=== PATIENT | male | born 1985 | race Caucasian/White ===

== ENCOUNTER 2016-12-23 17:51 | Inpatient (IN) | payer BC ==
[~2016-12-23] VITALS: Ht 165.1 cm; Wt 83.0 kg
[2016-12-23 17:53] VITALS: BP 135/84; PULSE 111; RESP 16; TEMP 98.3; O2SAT 96
--- NOTE | 2016-12-23 18:44 | PD ---
HPI Chief Complaint: Injury Time Seen by Provider: 18:44 Travel History International Travel<30 days: No Contact w/Intl Traveler<30days: No Traveled to known affect area: No History of Present Illness HPI 31-year-old male with no significant medical history presents to the emergency department for evaluation of right ankle pain. Patient states he fell off of a 4 foot ladder and rolled his ankle. Experienced immediate pain. Is unable to ambulate on it without significant pain. Pain is an 8 out of 10. Denies any low back pain. Did not hit his head or lose consciousness. Has no other symptoms to report. [facility] Past Medical History Medical History: Denies Significant Hx Past Surgical History Surgical History: No Previous Surgery Social History Alcohol Use: Yes (occ) Tobacco Use: No Substance Use: No Allergies-Medications (Allergen,Severity, Reaction): Coded Allergies: No Known Allergies (Unverified , 12/23/16) Review of Systems Except as stated in HPI: all other systems reviewed are Neg Physical Exam Narrative GENERAL: Well-nourished, well-developed male patient in no acute distress SKIN: Warm and dry. HEAD: Normocephalic. EYES: No scleral icterus. No injection or drainage. NECK: Supple, trachea midline. No JVD or lymphadenopathy. CARDIOVASCULAR: Regular rate and rhythm without murmurs, gallops, or rubs. RESPIRATORY: Breath sounds equal bilaterally. No accessory muscle use. GASTROINTESTINAL: Abdomen soft, non-tender, nondistended. EXTREMITY: The right proximal lateral foot and ankle is swollen and tender over the lateral aspect but the skin is intact and there is no ligamentous instability. There is no deformity. The foot and toes are warm and well- perfused. Sensation to pain and light touch is intact. BACK: Nontender without obvious deformity. No CVA tenderness. Data Data Last Documented VS Vital Signs Date Time Temp Pulse Resp B/P Pulse Ox O2 Delivery O2 Flow Rate FiO2 12/23/16 17:53 98.3 111 16 135/84 96 Room Air Orders Ankle, Complete ([id number]) (12/23/16 ) Ct Foot W/O Contrast (12/23/16 ) Ibuprofen (Motrin) (12/23/16 19:15) Npo After Midnight W/ Po Meds (12/24/16 Breakfast) Morphine Inj (Morphine Inj) (12/23/16 21:30) Ondansetron Inj (Zofran Inj) (12/23/16 21:30) Sodium Chlor 0.9% 1000 Ml Inj (Ns 1000 M (12/23/16 21:30) Iv Access Insert/Monitor (12/23/16 21:23) Complete Blood Count With Diff (12/23/16 21:23) Basic Metabolic Panel (Bmp) (12/23/16 21:23) Coag Profile (12/23/16 21:23) MDM Medical Decision Making Medical Screen Exam Complete: Yes Emergency Medical Condition: Yes Medical Record Reviewed: Yes Differential Diagnosis Fracture versus sprain versus contusion versus dislocation Narrative Course 31-year-old male presents per department for evaluation of right ankle pain. Patient is requesting ibuprofen for pain. X-ray imaging shows a comminuted intra-articular fracture of the calcaneus. CT imaging is ordered. Last Impressions Ankle X-Ray 12/23/16 0000 Signed Impressions: Service Date/Time: Friday, December 23, 2016 19:01 - CONCLUSION: Comminuted intra-articular fracture of the calcaneus. Danny Callahan MD I discussed the patient with Dr. Metz, shield runner on-call. She requested admission to medicine, nothing by mouth after midnight, posterior short leg splint with extra padding, ice, and elevation on a wedge. She plans for surgical intervention in the morning. Plan is discussed with the patient. He is in agreement with this plan of care. Diagnosis Primary Impression: Right calcaneal fracture Qualified Code: S92.011A - Closed displaced fracture of body of right calcaneus, initial encounter Admitting Information Admitting Physician Requests: Admit Condition: Stable Jeri Cervantes Dec 23, 2016 18:44
[2016-12-23] MEDS ORDERED: IBUPROFEN 600 MG TAB PO ONE (19:15)
--- NOTE | 2016-12-23 19:33 | RADRPT ---
EXAM DATE/TIME: 12/23/2016 19:01 [facility] COMPARISON: No previous studies available for comparison. INDICATIONS : Right ankle and heel pain fell from ladder. MEDICAL HISTORY : None. SURGICAL HISTORY : None. ENCOUNTER: Initial ACUITY: 1 day PAIN SCORE: 8/10 LOCATION: Right Ankle. FINDINGS: There is an extremely comminuted acute fracture of the mid and posterior body of the calcaneus. Fract ure has intra-articular extension of the subtalar joint, mainly in the region of the posterior facet. The cortex just distal to the plantar fascial attachment is also involved. There is straightening of Boehler's angle. CONCLUSION: Comminuted intra-articular fracture of the calcaneus. Danny Callahan MD on December 23, 2016 at 19:31 Board Certified Radiologist. This report was verified electronically.
[2016-12-23] MEDS ORDERED: MORPHINE SULFATE 4 MG/ML INJ IV PUSH ONE (21:30)
[2016-12-23] MEDS ORDERED: SODIUM CHLOR 0.9% 1000 ML INJ 1,000 ML IV SCH (21:30)
[2016-12-23] MEDS ORDERED: ONDANSETRON HCL 4 MG/2 ML VIAL IV PUSH ONE (21:30)
[2016-12-23 22:08] LABS: BASOPHIL % 0.4 % (0.0-2.0); EOSINOPHIL % 0.3 % (0.0-4.0); HEMATOCRIT 40.9 % (39.0-51.0); HEMO FLAGS DIFF FINAL; LYMPH % 18.1 % (9.0-44.0); MEAN CELL VOLUME 85.3 FL (80.0-100.0); MEAN CORPUSCULAR HEMOGLOBIN 29.6 PG (27.0-34.0); MEAN CORPUSCULAR HGB CONC 34.7 % (32.0-36.0); MONO % 8.3 % (0.0-8.0); NEUT % 72.9 % (16.0-70.0); PLATELET COUNT 250 TH/MM3 (150-450); RED BLOOD COUNT 4.79 MIL/MM3 (4.50-5.90); RED CELL DISTRIBUTION WIDTH 13.1 % (11.6-17.2)
--- NOTE | 2016-12-23 22:19 | HHI.HP ---
[facility] Primary Care Physician No Primary Care Physician Admission Diagnosis Diagnoses: (1) Fall Diagnosis: Principal (2) Right calcaneal fracture Diagnosis: Principal (3) Dehydration Diagnosis: Principal Travel History International Travel<30 Days: No Contact w/Intl Traveler <30 Da: No Traveled to Known Affected Are: No History of Present Illness This is a 31-year-old male with no significant PMH she was brought to the ER by EMS secondary to complaints of right ankle pain after a fall. Per pt fell off ladder approx 4ft onto right ankle, c/o immediate pain and unable to bare weight. No head trauma or LOC. On arrival, BP 135/84, HR 111, O2 sat 96% on RA , Afebrile. CBC unremarkable except for mildly elevated neutrophil count. Chemistry unremarkable except for GFR 79. Ankle X-ray with comminuted intra- articular fracture of the calcaneus. RLE CT obtained showing same. Dr. Metz consulted by ER physician, plan is for surgical intervention in am. Review of Systems Except as stated in HPI: all other systems reviewed are Neg ROS: 14 point review of systems otherwise negative. Past Family Social History Past Medical History PMH: None Past Surgical History PAST SURGICAL HISTORY: None Allergies: Coded Allergies: No Known Allergies (Unverified , 12/23/16) Family History PAST FAMILY HISTORY: Reviewed. No h/o DM or CAD Social History PAST SOCIAL HISTORY: Occasional alcohol. Negative for tobacco or drugs. Physical Exam Vital Signs Vital Signs Date Time Temp Pulse Resp B/P Pulse Ox O2 Delivery O2 Flow Rate FiO2 12/23/16 17:53 98.3 111 16 135/84 96 Room Air Physical Exam PE: GENERAL: Young white male in no acute distress. HEENT: PERRLA, EOMI. No scleral icterus or conjunctival pallor. No lid lag or facial droop. CARDIOVASCULAR: Regular rate and rhythm. No obvious murmurs to auscultation. No chest tenderness to palpation. RESPIRATORY: No obvious rhonchi or wheezing. Clear to auscultation. Breath sounds equal bilaterally. GASTROINTESTINAL: Abdomen soft, non-tender, nondistended. BS normal. MUSCULOSKELETAL: Decreased ROM of RLE due to injury. Pulses intact. NEUROLOGICAL: Awake, alert and oriented x4. No focal neurologic deficits. Moving both upper and lower extremities spontaneously. Laboratory Laboratory Tests Test 12/23/16 22:00 White Blood Count 11.0 Red Blood Count 4.79 Hemoglobin 14.2 Hematocrit 40.9 Mean Corpuscular Volume 85.3 Mean Corpuscular Hemoglobin 29.6 Mean Corpuscular Hemoglobin 34.7 Concent Red Cell Distribution Width 13.1 Platelet Count 250 Mean Platelet Volume 9.0 Neutrophils (%) (Auto) 72.9 Lymphocytes (%) (Auto) 18.1 Monocytes (%) (Auto) 8.3 Eosinophils (%) (Auto) 0.3 Basophils (%) (Auto) 0.4 Neutrophils # (Auto) 8.0 Lymphocytes # (Auto) 2.0 Monocytes # (Auto) 0.9 Eosinophils # (Auto) 0.0 Basophils # (Auto) 0.0 CBC Comment DIFF FINAL Differential Comment Result Diagram: 12/23/16 2200 Assessment and Plan Problem List: (1) Fall ICD Code: W19.XXXA Status: Acute (2) Right calcaneal fracture ICD Code: S92.001A Status: Acute (3) Dehydration ICD Code: E86.0 Status: Acute Assessment and Plan A/P: 1. Fall: s/p fall from 4ft ladder onto right foot/ankle, no head trauma or LOC reported. Denies lightheadedness/dizziness prior to event. 2. Right Heel Fx: secondary to above, Ankle X-ray w/ comminuted intra- articular fracture of the calcaneus, CT RLE obtained showing same, images reviewed by me. Dr. Metz consulted by ER physician, plan is for surgical intervention in am. NPO, IVF, analgesics/antiemetics as needed. 3. Dehydration: GFR 79, BUN/Creatinine normal. IVF for hydration, repeat labs in am. 4. DVT Prophylaxis: Mechanical contraindication in light of injury. Anticoagulation post op per Ortho 5. Social work for d/c planning as needed. 6. Case discussed w/ ER physician at length. Physician Certification 2 Midnight Certification Type: Admission for Inpatient Services Order for Inpatient Services The services are ordered in accordance with Medicare regulations or non- Medicare payer requirements, as applicable. In the case of services not specified as inpatient-only, they are appropriately provided as inpatient services in accordance with the 2-midnight benchmark. Estimated LOS (days): 2 days is the estimated time the patient will need to remain in the hospital, assuming treatment plan goals are met and no additional complications. Post-Hospital Plan: Not yet determined Problem Qualifiers (1) Right calcaneal fracture: Qualified Code: S92.011A - Closed displaced fracture of body of right calcaneus , initial encounter Trupti Toribio MD Dec 23, 2016 22:19
[2016-12-23 22:30] LABS: PROTHROMBIN TIME - PATIENT 11.1 SEC (9.8-11.6)
[2016-12-23] MEDS ORDERED: BISACODYL 10 MG SUPP PR PRN (22:30)
[2016-12-23] MEDS ORDERED: ONDANSETRON HCL 4 MG/2 ML VIAL IVP PRN (22:30)
[2016-12-23] MEDS ORDERED: SODIUM CHLORIDE 0.9% FLUSH 5 ML FLUSH FLUSH PRN (22:30)
[2016-12-23] MEDS: SODIUM CHLOR 0.9% 1000 ML INJ 1,000 ML IV SCH (22:35)
[2016-12-23 22:36] LABS: BICARBONATE 22.8 MEQ/L (21.0-32.0); POTASSIUM 3.9 MEQ/L (3.5-5.1)
--- NOTE | 2016-12-23 23:06 | RADRPT ---
EXAM DATE/TIME: 12/23/2016 19:37 [facility] COMPARISON: No previous studies available for comparison. INDICATIONS : Fell off ladder; right foot pain. RADIATION DOSE: 9.88 CTDIvol (mGy) MEDICAL HISTORY : None SURGICAL HISTORY : None. ENCOUNTER: Initial ACUITY: 1 day PAIN SCALE: 6/10 LOCATION: Right Foot TECHNIQUE: Volumetric scanning of the foot was performed. Using automated exposure control and adjustment of th e mA and/or kV according to patient size, radiation dose was kept as low as reasonably achievable to obtain optimal diagnostic quality images. FINDINGS: There is an extremely comminuted fracture of the calcaneus. Fracture is intra-articular at the subtal ar joint and the posterior facet on the calcaneal side is impacted, faces distally. There are minimal ly displaced components through the middle facet. An oblique coronally oriented fracture extends into the calcaneocuboid joint, also nondisplaced. Severely comminuted cortical involvement is seen medial ly and laterally. There is plantar involvement just distal to the plantar fascial attachment and the posterior/superior involvement just anterior to the posterior tubercle. The Achilles attachment is no t involved. There is generalized straightening of the bone and Boehler's angle. No subluxations. Talus is intact. CONCLUSION: Extremely comminuted intra-articular fracture of the calcaneus, most severely involving the posterior facet of the subtalar joint. Please see above. Danny Callahan MD on December 23, 2016 at 22:59 Board Certified Radiologist. This report was verified electronically.
[2016-12-23 23:20] VITALS: BP 138/90; PULSE 88; RESP 20; TEMP 97; O2SAT 99
[2016-12-24 04:00] VITALS: BP 136/90; PULSE 78; RESP 20; TEMP 96.1; O2SAT 99
[2016-12-24 05:38] LABS: AUTOMATED NEUTROPHIL # 5.5 TH/MM3 (1.8-7.7); BASOPHIL % 0.3 % (0.0-2.0); EOSINOPHIL # 0.1 TH/MM3 (0-0.4); EOSINOPHIL % 0.9 % (0.0-4.0); HEMATOCRIT 40.3 % (39.0-51.0); HEMO FLAGS DIFF FINAL; LYMPH % 26.8 % (9.0-44.0); LYMPHOCYTE # 2.5 TH/MM3 (1.0-4.8); MEAN CELL VOLUME 85.9 FL (80.0-100.0); MEAN CORPUSCULAR HEMOGLOBIN 29.2 PG (27.0-34.0); MEAN CORPUSCULAR HGB CONC 33.9 % (32.0-36.0); MONO % 13.8 % (0.0-8.0); NEUT % 58.2 % (16.0-70.0); PLATELET COUNT 225 TH/MM3 (150-450); RED BLOOD COUNT 4.69 MIL/MM3 (4.50-5.90); RED CELL DISTRIBUTION WIDTH 13.3 % (11.6-17.2); WHITE BLOOD COUNT 9.5 TH/MM3 (4.0-11.0)
[2016-12-24 05:52] LABS: ALT (GPT) 26 U/L (12-78); ANION GAP 8 MEQ/L (5-15); AST (GOT) 12 U/L (15-37); BICARBONATE 25.9 MEQ/L (21.0-32.0); BLOOD UREA NITROGEN 14 MG/DL (7-18); CHLORIDE 107 MEQ/L (98-107); GLOMERULAR FILTRATION RATE 90 ML/MIN (>89); POTASSIUM 3.9 MEQ/L (3.5-5.1); SODIUM (NA) 141 MEQ/L (136-145)
[2016-12-24 05:54] LABS: ALKALINE PHOSPHATASE 66 U/L (45-117); TOTAL BILIRUBIN ADULT 0.7 MG/DL (0.2-1.0)
[2016-12-24 07:34] VITALS: BP 133/81; PULSE 80; RESP 16; TEMP 98.4; O2SAT 99
[2016-12-24] MEDS: ACETAMINOPHEN 325 MG TAB PO PRN (08:14)
[2016-12-24] MEDS: MORPHINE SULFATE 4 MG/ML INJ IV PRN ×3 (09:01→22:54)
--- NOTE | 2016-12-24 10:09 | PD.CONS ---
History of Present Illness Service Podiatric surgery Consult Requested By ED Reason for Consult R calcaneal fracture Primary Care Physician No Primary Care Physician Diagnoses: History of Present Illness 31-year-old male fell 4ft from ladder to R foot/ankle and had severe pain and unable to bear weight. XR showed comminuted calcaneus fracture and CT was ordered showing the same. He was admitted for pain control, compartment checks, and surgery. No LOC. Past Family Social History Allergies: Coded Allergies: No Known Allergies (Unverified , 12/23/16) Past Medical History denies Past Surgical History denies Active Ordered Medications Current Medications Medications (Trade) Dose Ordered Sig/Lenore Route Start Time Stop Time Status Last Admin (NS 1000 ml Inj) 1,000 ml @ 100 mls/hr Q10H IV 12/23/16 23:00 12/23/16 22:35 (NS Flush) 2 ml UNSCH PRN FLUSH 12/23/16 22:30 (NS Flush) 2 ml BID FLUSH 12/24/16 09:00 (Zofran Inj) 4 mg Q6H PRN IVP 12/23/16 22:30 (Dulcolax Supp) 10 mg DAILY PRN MI 12/23/16 22:30 (Tylenol) 650 mg Q6H PRN PO 12/23/16 22:30 12/24/16 08:14 ([place] 5-325 Mg) 1 tab Q4H PRN PO 12/23/16 22:30 (Morphine Inj) 2 mg Q3H PRN IV 12/23/16 22:30 12/24/16 09:01 Family History denies Social History Occasional alcohol. Negative for tobacco or drugs. Physical Exam Vital Signs Vital Signs Date Time Temp Pulse Resp B/P Pulse Ox O2 Delivery O2 Flow Rate FiO2 12/24/16 07:34 98.4 80 16 133/81 99 12/24/16 04:00 96.1 78 20 136/90 99 12/23/16 23:20 97.0 88 20 138/90 99 12/23/16 17:53 98.3 111 16 135/84 96 Room Air Physical Exam R foot in splint. NVI RLE. Compartments soft. Laboratory Laboratory Tests Test 12/23/16 12/24/16 22:00 04:28 White Blood Count 11.0 9.5 Red Blood Count 4.79 4.69 Hemoglobin 14.2 13.7 Hematocrit 40.9 40.3 Mean Corpuscular Volume 85.3 85.9 Mean Corpuscular Hemoglobin 29.6 29.2 Mean Corpuscular Hemoglobin 34.7 33.9 Concent Red Cell Distribution Width 13.1 13.3 Platelet Count 250 225 Mean Platelet Volume 9.0 9.4 Neutrophils (%) (Auto) 72.9 58.2 Lymphocytes (%) (Auto) 18.1 26.8 Monocytes (%) (Auto) 8.3 13.8 Eosinophils (%) (Auto) 0.3 0.9 Basophils (%) (Auto) 0.4 0.3 Neutrophils # (Auto) 8.0 5.5 Lymphocytes # (Auto) 2.0 2.5 Monocytes # (Auto) 0.9 1.3 Eosinophils # (Auto) 0.0 0.1 Basophils # (Auto) 0.0 0.0 CBC Comment DIFF FINAL DIFF FINAL Differential Comment Prothrombin Time 11.1 Prothromb Time International 1.0 Ratio Activated Partial 25.0 Thromboplast Time Sodium Level 138 141 Potassium Level 3.9 3.9 Chloride Level 106 107 Carbon Dioxide Level 22.8 25.9 Anion Gap 9 8 Blood Urea Nitrogen 18 14 Creatinine 1.09 0.98 Estimat Glomerular Filtration 79 90 Rate Random Glucose 109 89 Calcium Level 8.5 8.4 Total Bilirubin 0.7 Aspartate Amino Transf 12 (AST/SGOT) Alanine Aminotransferase 26 (ALT/SGPT) Alkaline Phosphatase 66 Total Protein 7.3 Albumin 3.9 Result Diagram: 12/24/16 0428 12/24/16 0428 Imaging Last Impressions Lower Extremity CT 12/23/16 0000 Signed Impressions: Service Date/Time: Friday, December 23, 2016 19:37 - CONCLUSION: Extremely comminuted intra-articular fracture of the calcaneus, most severely involving the posterior facet of the subtalar joint. Please see above. Danny Callahan MD Ankle X-Ray 12/23/16 0000 Signed Impressions: Service Date/Time: Friday, December 23, 2016 19:01 - CONCLUSION: Comminuted intra-articular fracture of the calcaneus. Danny Callahan MD Assessment and Plan Assessment and Plan R calcaneal fracture To OR for ORIF R calcaneal fracture Discussed risks/benefits/potential complications and treatment plan NPO Elevate/ice machine/posterior splint in the meantime Britany Metz DPM Dec 24, 2016 10:09
[2016-12-24] MEDS ORDERED: BUPIVACAINE HCL PF 0.25% 30 ML VIAL ONE (10:37)
[2016-12-24] MEDS ORDERED: DEXAMETHASONE SOD PHOS 4 MG/ML VIAL ONE (10:44)
[2016-12-24] MEDS ORDERED: ACETAMINOPHEN 1000 MG/100 ML VIAL IV ONE (10:44)
[2016-12-24] MEDS ORDERED: SUGAMMADEX SODIUM 200 MG/2 ML VIAL IV PUSH ONE ×2 (10:44)
[2016-12-24] MEDS ORDERED: ceFAZolin INJ 1,000 MG VIAL IV ONE (12:08)
[2016-12-24] MEDS ORDERED: PROPOFOL 200 MG/20 ML AMP IV ONE (14:04)
[2016-12-24] MEDS ORDERED: ONDANSETRON HCL 4 MG/2 ML VIAL IV PUSH ONE (14:04)
[2016-12-24] MEDS ORDERED: PHENYLEPH/NS 1000 MCG/10 ML SYR IV ONE (14:04)
[2016-12-24] MEDS ORDERED: NEOSTIGMINE 3 MG/3 ML SYR IV ONE (14:04)
[2016-12-24] MEDS ORDERED: LACTATED RINGER'S 1000 ML INJ 1,000 ML IV ONE (14:04)
--- NOTE | 2016-12-24 15:08 | RADRPT ---
EXAM DATE/TIME: 12/24/2016 14:35 [facility] COMPARISON: CT FOOT RIGHT W/O CONTRAST, December 23, 2016, 19:37. INDICATIONS : Surgical repair. MEDICAL HISTORY : None. SURGICAL HISTORY : None. ENCOUNTER: Initial ACUITY: 1 day PAIN SCORE: Non-responsive. LOCATION: Right ankle FINDINGS: External fixation now seen of the extremely comminuted fracture of the right calcaneus. Alignment rosy ears near-anatomic. No subluxations are demonstrated. No evidence of an acute complication. CONCLUSION: Interim reduction and external fixation of the comminuted calcaneus fracture. Alignment appears near- anatomic. Danny Callahan MD on December 24, 2016 at 15:06 Board Certified Radiologist. This report was verified electronically.
[2016-12-24] MEDS ORDERED: DO NOT ADM ANY ANTICOAGULANT DRUGS XX PRN (15:20)
[2016-12-24] MEDS ORDERED: *MEPERIDINE 25 MG INJ VIAL PERIprocedural Use ONLY ONE (15:26)
[2016-12-24] MEDS ORDERED: MORPHINE SULFATE 4 MG/ML INJ ONE (15:33)
[2016-12-24] MEDS ORDERED: MIDAZOLAM HCL 2 MG/2 ML VIAL ONE (15:33)
[2016-12-24] MEDS ORDERED: fentaNYL CITRATE 250 MCG/5 ML AMP ONE (15:33)
--- NOTE | 2016-12-24 16:10 | HHI.PR ---
Immediate Post Op Note Procedure Date: Dec 24, 2016 Pre Op Diagnosis: Calcaneus fracture R, comminuted, displaced Post Op Diagnosis: same Surgeon: Britany Metz DPM [employer] Guard(s): Mili Garcia DPM Procedure: Open reduction with external fixation R calcaneus fracture Findings: Consistent with diagnosis. Lateral decubitus position. Lateral wall blown out and severely comminuted with large area of no structure, posterior facet plantarflexed and compressed, heel widened and in varus. Cancellous bone compressed with large void in calcaneal body. Sinus tarsi approach. Peroneals examined and found to be intact. Posterior facet visualized and reduced. Fracture line at angle of Gissane with anterior fragment displaced and dorsiflexed. Fracture found to be very unstable and not amenable to adequate internal fixation at this time. Medium delta external fixator applied to anterior tibia and transcalcaneal pin to reduce varus of heel. Small delta external fixator placed laterally into anterior calcaneus, posterior facet fragment, and calcaneal tubercle fragments, respectively, and spanned to achieve fracture reduction. C-arm utilized to confirm reduction. 5mL Demineralized bone matrix injected into bone void, followed by deep closure with 3-0 vicryl and skin closure with 2-0 nylon. Dressing consisting of xeroform, 4x4, abd pads, cast padding, below-knee posterior splint, wilver bandage NWB RLE with crutches. PT to gait train. Pain control. Will need removal of ex-fix in 6 weeks pending serial XR Additional Information: 2g Ancef IV Complications: none Specimen(s) removed: none Estimated blood loss: 20mL Anesthesia: General, Local (20mL 0.25% marcaine plain) Drains: None Tourniquet time (min at mmHg) 150 min @250mmHg Patient to: PACU Patient Condition: Good Implant/Devices: SEE IMPLANT LOG (if applicable) Date/Time of Procedure: SEE SURGICAL CARE RECORD Britany Metz DPM Dec 24, 2016 16:09
--- NOTE | 2016-12-24 16:25 | HHI.PR ---
Subjective Remarks f/u heel fracture patient was seen in PACU. Nurse as bedside. patient was sleeping but awaken by me. no complaints but was sedative. per nurse could not repair so he has external fixator in place. Objective Vitals Vital Signs Date Time Temp Pulse Resp B/P Pulse Ox O2 Delivery O2 Flow Rate FiO2 12/24/16 15:45 84 12 141/85 98 Nasal Cannula 3 12/24/16 15:30 100 14 152/108 99 Nasal Cannula 3 12/24/16 15:23 97.6 92 14 152/97 99 Nasal Cannula 3 12/24/16 07:34 98.4 80 16 133/81 99 12/24/16 04:00 96.1 78 20 136/90 99 12/23/16 23:20 97.0 88 20 138/90 99 12/23/16 17:53 98.3 111 16 135/84 96 Room Air I/O 12/23/16 12/23/16 12/23/16 12/24/16 12/24/16 12/24/16 07:00 15:00 23:00 07:00 15:00 23:00 Intake Total 240 ml 1400 ml Output Total 1000 ml 20 ml Balance -760 ml 1380 ml Intake Oral 240 ml Other 1400 ml Output Urine Total 1000 ml Estimated Blood Loss 20 ml # Bowel Movements 0 Result Diagram: 12/24/16 0428 12/24/16 0428 Objective Remarks GENERAL: in NAD sleeping. CARDIOVASCULAR: Regular rate and rhythm without murmurs, gallops, or rubs. RESPIRATORY: Breath sounds equal bilaterally. No accessory muscle use. GASTROINTESTINAL: Abdomen soft, non-tender, nondistended. MUSCULOSKELETAL: right legt/foot in external fixator. Medications and IVs Current Medications Ibuprofen (Motrin) 600 mg ONCE ONCE PO Last administered on 12/23/16 19:41; Start 12/23/16 at 19:15; Stop 12/23/16 at 19:16; Status DC Morphine Sulfate (Morphine Inj) 2 mg ONCE ONCE IV PUSH Last administered on 22:02; Start 12/23/16 at 21:30; Stop 12/23/16 at 21:31; Status DC Ondansetron HCl 4 mg 4 mg ONCE ONCE IV PUSH Last administered on 12/23/16 22: 02; Start 12/23/16 at 21:30; Stop 12/23/16 at 21:31; Status DC Sodium Chloride 1,000 ml @ 125 mls/hr Q8H IV Last administered on 12/23/16 22 :01; Start 12/23/16 at 21:30; Stop 12/23/16 at 22:21; Status DC Sodium Chloride (NS 1000 ml Inj) 1,000 ml @ 100 mls/hr Q10H IV Last administered on 12/23/16 22:35; Start 12/23/16 at 23:00 IV Flush (NS Flush) 2 ml UNSCH PRN FLUSH FLUSH AFTER USING IV ACCESS; Start 08/01 at 22:30 IV Flush (NS Flush) 2 ml BID FLUSH ; Start 12/24/16 at 09:00 Ondansetron HCl (Zofran Inj) 4 mg Q6H PRN IVP NAUSEA OR VOMITING; Start at 22:30 Bisacodyl (Dulcolax Supp) 10 mg DAILY PRN AL CONSTIPATION; Start 12/23/16 at 22 :30 Acetaminophen (Tylenol) 650 mg Q6H PRN PO FEVER/PAIN SCALE 1 TO 2 Last administered on 12/24/16 08:14; Start 12/23/16 at 22:30 Acetaminophen/ Hydrocodone Bitart ([place] 5-325 Mg) 1 tab Q4H PRN PO PAIN SCALE 3 TO 5; Start 12/23/16 at 22:30 Morphine Sulfate (Morphine Inj) 2 mg Q3H PRN IV Pain 6-10 Last administered on 12/24/16 09:01; Start 12/23/16 at 22:30 Bupivacaine HCl (Marcaine Pf 0.25% Inj) 30 ml STK-MED ONCE .ROUTE Last administered on 12/24/16 15:00; Start 12/24/16 at 10:37; Stop 12/24/16 at 10:38 ; Status DC Sugammadex Sodium (Bridion Inj) 200 mg STK-MED ONCE IV PUSH ; Start 12/24/16 at 10:44; Stop 12/24/16 at 10:45; Status DC Dexamethasone Sodium Phosphate (Decadron Inj) 4 mg STK-MED ONCE .ROUTE ; Start 12/24/16 at 10:44; Stop 12/24/16 at 10:45; Status DC Acetaminophen (Ofirmev Inj) 1,000 mg STK-MED ONCE IV ; Start 12/24/16 at 10:44; Stop 12/24/16 at 10:45; Status DC Cefazolin Sodium (Ancef Inj) 1,000 mg STK-MED ONCE IV Last administered on 12/24t 12:08; Start 12/24/16 at 12:08; Stop 12/24/16 at 13:13; Status DC Meperidine HCl (*DEMEROL INJ PERIprocedural ONLY) 25 mg STK-MED ONCE .ROUTE Last administered on 12/24/16t 15:27; Start 12/24/16 at 15:26; Stop 12/24/16 at 15:27; Status DC Midazolam HCl (Versed Inj) 2 mg STK-MED ONCE .ROUTE ; Start 12/24/16 at 15:33; Stop 12/24/16 at 15:34; Status DC Fentanyl Citrate (fentaNYL INJ) 250 mcg STK-MED ONCE .ROUTE ; Start 12/24/16 at 15:33; Stop 12/24/16 at 15:34; Status DC Fentanyl Citrate (fentaNYL INJ) 100 mcg STK-MED ONCE .ROUTE ; Start 12/24/16 at 15:33; Stop 12/24/16 at 15:34; Status DC Morphine Sulfate (Morphine Inj) 4 mg STK-MED ONCE .ROUTE ; Start 12/24/16 at 15: 33; Stop 12/24/16 at 15:34; Status DC Miscellaneous Information ALL NURSING DEPARTME... UNSCH PRN XX SEE LABEL COMMENTS; Start 12/24/16 at 15:20; Stop 12/25/16 at 15:19 A/P Problem List: (1) Fall ICD Code: W19.XXXA Status: Acute (2) Right calcaneal fracture ICD Code: S92.001A Status: Acute (3) Dehydration ICD Code: E86.0 Status: Acute Assessment and Plan Fall -mechanical fall. - s/p fall from 4ft ladder onto right foot/ankle, no head trauma or LOC reported. Right Heel Fx - secondary to above, Ankle X-ray w/ comminuted intra-articular fracture of the calcaneus, CT RLE obtained showing same, images reviewed by me. -Dr. Metz s/p external fixator on 12/24/16. -management per Director Of Content And Programming. Dehydration -GFR 79, BUN/Creatinine normal. IVF for hydration. -IMPROVED. DVT Prophylaxis -Mechanical contraindication in light of injury. - Anticoagulation post op per Ortho Problem Qualifiers (1) Right calcaneal fracture: Qualified Code: S92.011A - Closed displaced fracture of body of right calcaneus , initial encounter Natalia Roman MD Dec 24, 2016 16:25
[2016-12-24 16:45] VITALS: BP 153/93; PULSE 102; RESP 16; TEMP 96.1; O2SAT 99
--- NOTE | 2016-12-24 17:00 | RADRPT ---
EXAM DATE/TIME: 12/24/2016 15:44 [facility] COMPARISON: CT FOOT RIGHT W/O CONTRAST, December 23, 2016, 19:37. INDICATIONS : Post operative images. MEDICAL HISTORY : None. SURGICAL HISTORY : None. ENCOUNTER: Initial ACUITY: 1 day PAIN SCORE: Non-responsive. LOCATION: Right heel. FINDINGS: Interval reduction of the extremely comminuted fracture of the right calcaneus. Alignment appears una ssly near-anatomic. External fixation present. The patient is also casted. CONCLUSION: Reduction and external fixation/casting of the calcaneal fracture, grossly near-anatomic alignment. Danny Callahan MD on December 24, 2016 at 16:57 Board Certified Radiologist. This report was verified electronically.
[2016-12-24] MEDS: SODIUM CHLOR 0.9% 1000 ML INJ 1,000 ML IV SCH (19:00)
[2016-12-24 20:00] VITALS: BP 141/89; PULSE 105; RESP 18; TEMP 98.7; O2SAT 99
[2016-12-24] MEDS: ACETAMINOPHEN/HYDROcodone 325 MG/5 MG TAB PO PRN (21:42)
[2016-12-24] MEDS: SODIUM CHLORIDE 0.9% FLUSH 5 ML FLUSH FLUSH SCH (22:55)
[2016-12-24 23:51] VITALS: BP_SYST 114; BP_SYST 149; BP_DIAS 89; PULSE 122; RESP 20; TEMP 101.6; O2SAT 100
[2016-12-25] VITALS (7 sets, daily range): BP systolic 126–155; BP diastolic 83–93; PULSE 106–110; RESP 18–20; TEMP 98.9–101.4; O2SAT 97–100
[2016-12-25] MEDS: ACETAMINOPHEN 325 MG TAB PO PRN ×3 (01:23→22:00)
[2016-12-25] MEDS: MORPHINE SULFATE 4 MG/ML INJ IV PRN ×2 (04:11→19:05)
[2016-12-25] MEDS: SODIUM CHLOR 0.9% 1000 ML INJ 1,000 ML IV SCH ×3 (05:00→15:00)
[2016-12-25] MEDS: ACETAMINOPHEN/HYDROcodone 325 MG/5 MG TAB PO PRN ×4 (06:14→22:00)
[2016-12-25] MEDS: SODIUM CHLORIDE 0.9% FLUSH 5 ML FLUSH FLUSH SCH ×2 (09:00→21:59)
--- NOTE | 2016-12-25 10:42 | RADRPT ---
EXAM DATE/TIME: 12/25/2016 10:00 [place] COMPARISON: CT FOOT RIGHT W/O CONTRAST, December 23, 2016, 19:37. INDICATIONS : Status post external fixator yesterday; evaluate fracture. RADIATION DOSE: 7.29 CTDIvol (mGy) MEDICAL HISTORY : None SURGICAL HISTORY : Right calcaneous fracture. ENCOUNTER: Initial ACUITY: 1 day PAIN SCALE: 6/10 LOCATION: Right foot TECHNIQUE: Volumetric scanning of the foot was performed. Using automated exposure control and adjustment of th e mA and/or kV according to patient size, radiation dose was kept as low as reasonably achievable to obtain optimal diagnostic quality images. FINDINGS: There is extensive fracturing of the calcaneus. The patient is now an external fixer with 3 rods through the calcaneus. The calcaneal fractures extend through the posterior, middle, and anterior fa cets of the subtalar joint. There is increased density in the calcaneal body likely related to methyl methacrylate material. There is fracture at the base of the sustentaculum barbie. Boehler's angle is pr eserved. The calcaneal shape has been restored. CONCLUSION: Successful repair of the calcaneus with Boehler's angle being restored and the normal calcaneal shape being restored. The patient is in an external fixator. Danny Ellsworth MD on December 25, 2016 at 10:36 Board Certified Radiologist. This report was verified electronically.
--- NOTE | 2016-12-25 12:20 | HHI.PR ---
Subjective Remarks f/u for heal fracture. His parents are at bedside. patient has no complaints. He stated that pain is controlled. He had fevers yesterday. Denied any N/V, SOB or urinary symptoms. Objective Vitals Vital Signs Date Time Temp Pulse Resp B/P Pulse Ox O2 Delivery O2 Flow Rate FiO2 12/25/16 11:56 99 21 12/25/16 08:00 100.6 110 18 144/85 98 12/25/16 04:10 101.2 108 18 155/92 98 12/25/16 00:41 101.4 12/24/16 23:51 101.6 122 20 149/89 100 12/24/16 20:00 98.7 105 18 141/89 99 12/24/16 19:32 Room Air 12/24/16 16:45 96.1 102 16 153/93 99 12/24/16 16:00 105 12 153/89 96 Room Air 12/24/16 15:45 84 12 141/85 98 Nasal Cannula 3 12/24/16 15:30 100 14 152/108 99 Nasal Cannula 3 12/24/16 15:23 97.6 92 14 152/97 99 Nasal Cannula 3 I/O 12/24/16 12/24/16 12/24/16 12/25/16 12/25/16 12/25/16 07:00 15:00 23:00 07:00 15:00 23:00 Intake Total 240 ml 0 ml 1880 ml 240 ml Output Total 1000 ml 220 ml 550 ml Balance -760 ml 0 ml 1660 ml -310 ml Intake Oral 240 ml 0 ml 480 ml 240 ml Other 1400 ml Output Urine Total 1000 ml 200 ml 550 ml Estimated Blood Loss 20 ml # Voids 2 15 4 # Bowel Movements 0 0 0 0 Result Diagram: 12/24/16 0428 12/24/168 Objective Remarks GENERAL: in NAD and awake. CARDIOVASCULAR: Regular rate and rhythm without murmurs, gallops, or rubs. RESPIRATORY: Breath sounds equal bilaterally. No accessory muscle use. GASTROINTESTINAL: Abdomen soft, non-tender, nondistended. MUSCULOSKELETAL: right legt/foot in external fixator and bandage. Medications and IVs Current Medications Ibuprofen (Motrin) 600 mg ONCE ONCE PO Last administered on 12/23/16t 19:41; Start 12/23/16 at 19:15; Stop 12/23/16 at 19:16; Status DC Morphine Sulfate (Morphine Inj) 2 mg ONCE ONCE IV PUSH Last administered on 22:02; Start 12/23/16 at 21:30; Stop 12/23/16 at 21:31; Status DC Ondansetron HCl 4 mg 4 mg ONCE ONCE IV PUSH Last administered on 12/23/16 22: 02; Start 12/23/16 at 21:30; Stop 12/23/16 at 21:31; Status DC Sodium Chloride 1,000 ml @ 125 mls/hr Q8H IV Last administered on 12/23/16 22 :01; Start 12/23/16 at 21:30; Stop 12/23/16 at 22:21; Status DC Sodium Chloride (NS 1000 ml Inj) 1,000 ml @ 100 mls/hr Q10H IV Last administered on 12/25/16 06:14; Start 12/23/16 at 23:00 IV Flush (NS Flush) 2 ml UNSCH PRN FLUSH FLUSH AFTER USING IV ACCESS; Start 08/01 at 22:30 IV Flush (NS Flush) 2 ml BID FLUSH Last administered on 12/25/16 09:00; Start 12/24/16 at 09:00 Ondansetron HCl (Zofran Inj) 4 mg Q6H PRN IVP NAUSEA OR VOMITING; Start at 22:30 Bisacodyl (Dulcolax Supp) 10 mg DAILY PRN AL CONSTIPATION; Start 12/23/16 at 22 :30 Acetaminophen (Tylenol) 650 mg Q6H PRN PO FEVER/PAIN SCALE 1 TO 2 Last administered on 12/25/16 01:23; Start 12/23/16 at 22:30 Acetaminophen/ Hydrocodone Bitart ([place] 5-325 Mg) 1 tab Q4H PRN PO PAIN SCALE 3 TO 5 Last administered on 12/25/16 11:14; Start 12/23/16 at 22:30 Morphine Sulfate (Morphine Inj) 2 mg Q3H PRN IV Pain 6-10 Last administered on 12/25/16 04:11; Start 12/23/16 at 22:30 Bupivacaine HCl (Marcaine Pf 0.25% Inj) 30 ml STK-MED ONCE .ROUTE Last administered on 3/11/17at 15:00; Start 12/24/16 at 10:37; Stop 12/24/16 at 10:38 ; Status DC Sugammadex Sodium (Bridion Inj) 200 mg STK-MED ONCE IV PUSH ; Start 12/24/16 at 10:44; Stop 12/24/16 at 10:45; Status DC Dexamethasone Sodium Phosphate (Decadron Inj) 4 mg STK-MED ONCE .ROUTE ; Start 12/24/16 at 10:44; Stop 12/24/16 at 10:45; Status DC Acetaminophen (Ofirmev Inj) 1,000 mg STK-MED ONCE IV ; Start 12/24/16 at 10:44; Stop 12/24/16 at 10:45; Status DC Cefazolin Sodium (Ancef Inj) 1,000 mg STK-MED ONCE IV Last administered on 12/24 12:08; Start 12/24/16 at 12:08; Stop 12/24/16 at 13:13; Status DC Meperidine HCl (*DEMEROL INJ PERIprocedural ONLY) 25 mg STK-MED ONCE .ROUTE Last administered on 12/24/16 15:27; Start 12/24/16 at 15:26; Stop 12/24/16 at 15:27; Status DC Midazolam HCl (Versed Inj) 2 mg STK-MED ONCE .ROUTE ; Start 12/24/16 at 15:33; Stop 12/24/16 at 15:34; Status DC Fentanyl Citrate (fentaNYL INJ) 250 mcg STK-MED ONCE .ROUTE ; Start 12/24/16 at 15:33; Stop 12/24/16 at 15:34; Status DC Fentanyl Citrate (fentaNYL INJ) 100 mcg STK-MED ONCE .ROUTE ; Start 12/24/16 at 15:33; Stop 12/24/16 at 15:34; Status DC Morphine Sulfate (Morphine Inj) 4 mg STK-MED ONCE .ROUTE ; Start 12/24/16 at 15: 33; Stop 12/24/16 at 15:34; Status DC Miscellaneous Information ALL NURSING DEPARTME... UNSCH PRN XX SEE LABEL COMMENTS; Start 12/24/16 at 15:20; Stop 12/25/16 at 15:19 A/P Problem List: (1) Fall ICD Code: W19.XXXA Status: Acute (2) Right calcaneal fracture ICD Code: S92.001A Status: Acute (3) Dehydration ICD Code: E86.0 Status: Acute Assessment and Plan Fall -mechanical fall. - s/p fall from 4ft ladder onto right foot/ankle, no head trauma or LOC reported. Post op fever -incentive spirometry ordered. -no sign of infection. -continue to monitor. Right Heel Fx - secondary to above, Ankle X-ray w/ comminuted intra-articular fracture of the calcaneus. -Dr. Metz s/p Open reduction with external fixation R calcaneus fracture12/24. -management per Certified Surgical Assistant. Dehydration -GFR 79, BUN/Creatinine normal. IVF for hydration. -IMPROVED. DVT Prophylaxis -Mechanical contraindication in light of injury. - Anticoagulation post op per Ortho Discharge Planning Patient may need to go to rehab. Pending Certified Surgical Assistant recommendation. Problem Qualifiers (1) Right calcaneal fracture: Qualified Code: S92.011A - Closed displaced fracture of body of right calcaneus , initial encounter Natalia Roman MD Dec 25, 2016 12:19
--- NOTE | 2016-12-25 16:56 | PD.POD ---
Subjective Podiatric Problems R calcaneal fracture s/p open reduction with external fixation 12/24/16 [facility] Past Med/Surg/Social History Social History Smoking Status: Never Smoker Objective Vital Signs Vital Signs Date Time Temp Pulse Resp B/P Pulse Ox O2 Delivery O2 Flow Rate FiO2 12/25/16 16:00 101.0 110 18 140/93 98 12/25/16 12:00 98.9 110 18 142/89 100 12/25/16 11:56 99 21 12/25/16 08:00 100.6 110 18 144/85 98 12/25/16 04:10 101.2 108 18 155/92 98 12/25/16 00:41 101.4 12/24/16 23:51 101.6 122 20 149/89 100 12/24/16 20:00 98.7 105 18 141/89 99 12/24/16 19:32 Room Air Coded Allergies: No Known Allergies (Unverified , 12/23/16) Physical Exam Remarks R foot posterior splint with mild strikethrough to bandage medially and laterally. Sensation intact to digits and brisk capillary refill to digits. Pain well-controlled on oral medication at this time Last Impressions Foot X-Ray 12/24/16 0000 Signed Impressions: Service Date/Time: Saturday, December 24, 2016 15:44 - CONCLUSION: Reduction and external fixation/casting of the calcaneal fracture, grossly near-anatomic alignment. Danny Callahan MD Ankle X-Ray 12/24/16 0000 Signed Impressions: Service Date/Time: Saturday, December 24, 2016 14:35 - CONCLUSION: Interim reduction and external fixation of the comminuted calcaneus fracture. Alignment appears near-anatomic. Danny Callahan MD Lower Extremity CT 12/23/16 0000 Signed Impressions: Service Date/Time: Friday, December 23, 2016 19:37 - CONCLUSION: Extremely comminuted intra-articular fracture of the calcaneus, most severely involving the posterior facet of the subtalar joint. Please see above. Danny Callahan MD Assessment & Plan A/P R calcaneal fracture, s/p open reduction with external fixation 12/24/16 [facility] Keep bandage clean, dry, intact RLE. Giving one more dose of antibiotic ancef 2g IV prophylaxis since patient will be here overnight. Patient will follow up in [place] office on Monday for dressing and splint change. Discussed with patient and family. Ice behind knee and elevate above heart level to reduce swelling/pain. NWB R foot with walker ok. Cleared for d/c per podiatry in the morning if still no fever present. Britany Metz DPM Dec 25, 2016 16:56
[2016-12-25] MEDS ORDERED: ceFAZolin 2 GM PREMIX 50 ML IV ONE (17:00)
[2016-12-26] VITALS: BP 121/82; PULSE 108; RESP 20; TEMP 98.3; O2SAT 98
[2016-12-26] MEDS: SODIUM CHLOR 0.9% 1000 ML INJ 1,000 ML IV SCH (01:00)
[2016-12-26] MEDS: ACETAMINOPHEN/HYDROcodone 325 MG/5 MG TAB PO PRN ×3 (02:03→11:52)
[2016-12-26 04:00] VITALS: BP 125/84; PULSE 100; RESP 20; TEMP 98.1; O2SAT 98
[2016-12-26] MEDS: ACETAMINOPHEN 325 MG TAB PO PRN (06:33)
[2016-12-26 08:00] VITALS: BP 140/84; PULSE 106; RESP 16; TEMP 98.5; O2SAT 98
[2016-12-26 12:00] VITALS: BP 127/86; PULSE 107; RESP 16; TEMP 99.1; O2SAT 99
[2016-12-26] MEDS ORDERED: HYDR-3516 PO (13:06)
--- NOTE | 2016-12-26 13:07 | HHI.DS ---
Discharge Summary Admission Date Dec 23, 2016 at 22:20 Discharge Date: Dec 26, 2016 Admitting Diagnosis heel fracture mechanical fall (1) Fall ICD Code: W19.XXXA (2) Right calcaneal fracture ICD Code: S92.001A Diagnosis: Principal (3) Dehydration ICD Code: E86.0 Diagnosis: Principal Procedures see hospital course Brief History - From Admission This is a 31-year-old male with no significant PMH she was brought to the ER by EMS secondary to complaints of right ankle pain after a fall. Per pt fell off ladder approx 4ft onto right ankle, c/o immediate pain and unable to bare weight. No head trauma or LOC. On arrival, BP 135/84, HR 111, O2 sat 96% on RA , Afebrile. CBC unremarkable except for mildly elevated neutrophil count. Chemistry unremarkable except for GFR 79. Ankle X-ray with comminuted intra- articular fracture of the calcaneus. RLE CT obtained showing same. Dr. Metz consulted by ER physician, plan is for surgical intervention in am. CBC/BMP: 12/24/16 0428 12/24/16 0428 Significant Findings Laboratory Tests Test 12/23/16 12/24/16 22:00 04:28 Neutrophils (%) (Auto) 72.9 % (16.0-70.0) Monocytes (%) (Auto) 8.3 % (0.0-8.0) 13.8 % (0.0-8.0) Neutrophils # (Auto) 8.0 TH/MM3 (1.8-7.7) Estimat Glomerular Filtration 79 ML/MIN (>89) Rate Random Glucose 109 MG/DL (74-106) Monocytes # (Auto) 1.3 TH/MM3 (0-0.9) Calcium Level 8.4 MG/DL (8.5-10.1) Aspartate Amino Transf 12 U/L (15-37) (AST/SGOT) Imaging Last Impressions Lower Extremity CT 12/24/16 0000 Signed Impressions: Service Date/Time: Sunday, December 25, 2016 10:00 - CONCLUSION: Successful repair of the calcaneus with Boehler's angle being restored and the normal calcaneal shape being restored. The patient is in an external fixator. Danny Ellsworth MD Foot X-Ray 12/24/16 0000 Signed Impressions: Service Date/Time: Saturday, December 24, 2016 15:44 - CONCLUSION: Reduction and external fixation/casting of the calcaneal fracture, grossly near-anatomic alignment. Danny Callahan MD Ankle X-Ray 12/24/16 0000 Signed Impressions: Service Date/Time: Saturday, December 24, 2016 14:35 - CONCLUSION: Interim reduction and external fixation of the comminuted calcaneus fracture. Alignment appears near-anatomic. Danny Callahan MD PE at Discharge GENERAL: in NAD and awake. CARDIOVASCULAR: Regular rate and rhythm without murmurs, gallops, or rubs. RESPIRATORY: Breath sounds equal bilaterally. No accessory muscle use. GASTROINTESTINAL: Abdomen soft, non-tender, nondistended. MUSCULOSKELETAL: right legt/foot in external fixator and bandage. Pt update on day of discharge patient stated he is ready to go. Denied any pain. He stated pain is controlled. His parents are at bedside. no fevers since yesterday. denied any SOB or cough. Hospital Course Fall -mechanical fall. - s/p fall from 4ft ladder onto right foot/ankle, no head trauma or LOC reported. Post op fever -incentive spirometry ordered. -no sign of infection. -patient febrile right after surgery but then he was afebrile for 24 hours and no sign of infection. clinically did well. Right Heel Fx - secondary to above, Ankle X-ray w/ comminuted intra-articular fracture of the calcaneus. -Dr. Metz s/p Open reduction with external fixation R calcaneus fracture 09/01. -management per [employer] Professor and she will follow up with his as outpatient. first appointment on Mon. Dehydration -GFR 79, BUN/Creatinine normal. IVF for hydration. -RESOLVED with IVFs. Pt Condition on Discharge: Good Discharge Disposition: Discharge Home Discharge Time: <= 30 minutes Discharge Instructions DIET: Follow Instructions for: As Tolerated, No Restrictions Activities you can perform: Regular-No Restrictions, See Additionl Instruction Other Activity Instructions: Do not drive or operate heavy machineray if on narcotics. Follow up Referrals: PCP Follow-up - 1 Week Podiatry - 2 Days with Britany Metz DPM New Medications: Walker with Front Wheels (Walker with Front Wheels) 1 Mis Mis 1 EA .ROUTE DIRECTED heel fracture #1 Ref 0 EA Hydrocodone-Acetaminophen (Hydrocodone-Acetaminophen) 5-325 mg Tab 1 TAB PO Q4H PRN pain #30 Ref 0 TAB Natalia Roman MD Dec 26, 2016 13:07
--- NOTE | 2016-12-26 13:07 | HHI.DCPOC ---
Discharge Care Plan Diagnosis: (1) Right calcaneal fracture (2) Dehydration (3) Fall Goals to Promote Your Health * To prevent worsening of your condition and complications * To maintain your health at the optimal level Directions to Meet Your Goals Take your medications as prescribed Follow your dietary instruction Follow activity as directed Keep your appointments as scheduled Take your immunizations and boosters as scheduled If your symptoms worsen call your PCP, if no PCP go to Urgent Care Center or Emergency Room Smoking is Dangerous to Your Health. Avoid second hand smoke Call the 24-hour hour crisis hotline for domestic abuse at Natalia Roman MD Dec 26, 2016 13:07
[2016-12-26] MEDS ORDERED: WALKER WHEELS/F1 MIS (13:08)
--- NOTE | 2016-12-30 20:45 | MP ---
cc: ISIDRAAMYCristiano WELLS DATE OF SURGERY: 12/24/2016. INDICATIONS FOR THE PROCEDURE: The patient presented to the emergency department after falling from a ladder while setting something up for [place] [employer]. He fell, he states, approximately four to five feet landing on his ankle and foot and was found to have a comminuted calcaneal fracture to the right lower extremity. He was unable to bear weight immediately upon this injury. He did not have any head injuries or loss of consciousness. I was consulted to manage the fracture I discussed with the patient that he would require open reduction of the fracture versus internal versus external fixation for this fracture. I discussed with him that long-term risks, benefits and complications could include arthritis, joint stiffness, need for further surgery and pain. As a result, I discussed with him that this was a fracture that necessitated better alignment of the joint to have a better prognosis. The patient understood the risks, benefits and potential complications and agreed to undergo a reduction with internal versus external fixation of the right calcaneal fracture. DESCRIPTION OF THE PROCEDURE IN DETAIL: He was seen in preop holding by myself, nursing staff and anesthesia where the correct patient side and site were all confirmed to be correct in the right foot. He was then taken to the surgical suite and placed in lateral decubitus position where time outs were performed as per hospital protocol. Attention was then directed the right lower extremity that was prepped and draped in normal sterile fashion after a thigh tourniquet was applied. Attention was directed to the lateral aspect of the sinus tarsi area where a sinus tarsi approach was utilized secondary to the patient's significant swelling to the area in order to have a more minimally invasive approach rather than the traditional lateral extensile approach to access the joint and reduce it. Care was taken to avoid neurovascular structures and the joint was visualized. Through this approach, the peroneal tendons were observed and found to be intact without the image. Following this, it was found that the fracture was very unstable and reduction was very difficult to maintain. Reduction was able to be achieved but even with temporary fixation with K-wires in anticipation of internal fixation were not cooperating and it was deemed necessary that an external fixator be applied. The first external fixator was applied. The external fixator consisting of a [employer]ynthes small ex fix system using 4.0 diameter half pins x3; one was placed into the anterior and lateral fragments toward the calcaneocuboid joint, one pin was placed into the calcaneal tuber fragment and outside of the incision line using a stab incision and C-arm guidance another pin was placed into the fragment of the posterior facette just beneath the joint area. Using these three points of fixation, three monorail bars were utilized to connect these in a delta shape and held in place in order to achieve reduction of the fracture. C-arm was utilized to confirm reduction using the first external fixator. Following this, it was deemed necessary to apply a second separate external fixation device to achieve alignment in the frontal plane. A centrally threaded 5 mm Steinmann pin was utilized from lateral to medial through the calcaneus as well as two half pins 5 mm diameter into the anterior distal tibia and utilized using two linear monorail bars to create a delta-shaped fixator device in order to reduce the varus component of the calcaneal tuber fragment and were tightened in neutral position. This was confirmed with C-arm imaging. Following this, the small lateral external fixator was tightened in its position and reduction of the fracture was confirmed with C-arm imaging and final images were taken. Following this, closure of the incision after copious irrigation was achieved utilizing 3-0 Vicryl suture followed by 2-0 nylon suture to the skin and a posterior splint was applied well-padded with an internal bandage consisting of Xeroform to all pin sites, Xeroform to the incision site, 4x4s, ABDs, cast padding and Renzo bandage in the internal bandage. Local anesthesia consisting of 20 mL of 0.25% Marcaine plain was injected into the area of the pin sites prior to the bandage application. Please note that prior to closure of the skin, 5 mL of demineralized bone matrix was injected into the bone void area the knee at the posterior facette fragment in order to fill in the void and maintain stability of the fracture. Of note also was that the lateral wall upon examination of the fracture was noted to be blown out significantly and severely comminuted and unstable. The patient tolerated procedure and anesthesia well without complications and was taken back to the post-anesthesia care unit with vital signs stable and vascular status intact to the right foot. He will be non-weightbearing right lower extremity with crutches and physical therapy to gait train and he will the maintain control and removal of the external fixator in six weeks pending serial x-rays confirming bony healing and we will order a CT scan postoperatively to confirm reduction of the fracture. SURGEON: Britany Metz. ARTIFICIAL INSEMINATION TECHNICIAN: Mili Garcia. PREOPERATIVE DIAGNOSIS: Calcaneus fracture, right comminuted and displaced. POSTOPERATIVE DIAGNOSIS: Calcaneus fracture, right comminuted and displaced. OPERATIVE PROCEDURE PERFORMED: Open reduction with external fixation x 2 right calcaneus fracture. PROPHYLAXIS: 2 grams Ancef IV preoperatively. PATHOLOGY: None. ANESTHESIA: General endotracheal anesthesia plus 20 mL of 0.25% Marcaine plain. ESTIMATED BLOOD LOSS: Minimal, approximately 20 mL. COMPLICATIONS: None. DISPOSITION: Non-weightbearing right lower extremity with crutches and physical therapy to gait train, pain control and need for removal of ex fix in approximately six weeks pending serial x-rays. He will follow up in my clinic in one week for a dressing change. Britany TONG/AFIA /11:32 AM /8:32 PM [place]
== END 2016-12-26 14:58 | disposition home or self-care (01) | DRG 505 ==
LOC: NEPB 17:51 → NEDA 22:20 → N06B 23:59
PROVIDERS: ADMIT Family Medicine; ATTEND Family Medicine
PROC: 0QSL05Z Reposition Right Tarsal with External Fixation Device, Open Approach (ICD-10-PCS; principal; 2016-12-24 11:44)
DX: S92.06 Intraarticular fracture of calcaneus (principal); R50.82 Postprocedural fever; E86.0 Dehydration; W11.XXXA Fall on and from ladder, initial encounter; Y93.39 Activity, other involving climbing, rappelling and jumping off; Y92.9 Unspecified place or not applicable
CPT/HCPCS: 29515; 73610; 73650; 73700; 76000; 80048; 80053; 85025; 85610; 85730; 94150; 96374; 96375; C1713; J0131; J0690; J1100; J2175; J2250; J2270; J2370; J2405; J2710; J3010; J7030; J7120

== ENCOUNTER → 2017-02-15 | Day surgery (SDC) | payer BC ==
[~2017-02-15] MED LIST: BACITRACIN IM FOR SOLN 50,000 UNIT VIAL ONE; BUPIVACAINE HCL PF 0.25% 30 ML VIAL ONE; HYDR-3516 PO; KETOROLAC TROMETHAMINE 30 MG/ML (IVP) VIAL IV PUSH ONE; LACTATED RINGER'S 1000 ML INJ 1,000 ML ONE; MIDAZOLAM HCL 2 MG/2 ML VIAL ONE; ONDANSETRON HCL 4 MG/2 ML VIAL IV PUSH ONE; PROPOFOL 200 MG/20 ML AMP IV ONE; SODIUM CHLORIDE 0.9% INJ 10 ML ONE; WALKER WHEELS/F1 MIS; ceFAZolin 2 GM PREMIX 50 ML ONE
--- NOTE | 2017-02-17 17:01 | TN ---
cc: BRITANY MINER DPM DATE OF SURGERY: 02/17/2017. INDICATIONS FOR THE PROCEDURE: This patient is a 31-year-old male who presented initially to the emergency department with a calcaneal fracture and underwent external fixation of the ankle area as well as lateral calcaneus. The hardware has been in place for approximately six weeks and he underwent a CT scan showing there was evidence of some healing, although less than expected to the area but that the alignment was near anatomical. I discussed with the patient that we would be able to remove the external fixator which is a painful source of hardware to the area in order to allow the fracture to continue to heal in a cast versus having a bulky external fixation device in place. Discussed risks, benefits, potential complications of surgery to the patient and he agreed to undergo removal of external fixator right foot and ankle. DESCRIPTION OF THE PROCEDURE IN DETAIL: The patient was seen in preop holding by myself, nursing staff and anesthesia where the correct patient, side and site were all confirmed to be correct and the right foot and ankle. He was then taken back to the surgical suite, placed in the supine position after timeouts were performed as per facility protocol. The right foot and ankle were prepped and draped in normal sterile fashion followed by attention directed to the external fixation device where wrench and drill were utilized in order to remove the external fixator components as well as the pins x2 to the anterior tibia. Two half pins were removed from that area as well as one transcalcaneal pin and three half pins from the lateral aspect of the calcaneus. All were removed in their entirety, followed by curettage and irrigation of all pin sites followed by freshening up of the incision areas and primary closure of all pin sites after they were all found to be very clean and healthy bleeding tissue was found to be in all of those areas. No signs of infection were present in any of those areas. They were closed primarily using 2-0 nylon suture followed by application of a posterior splint to the right lower extremity. He tolerated the procedure and anesthesia well without complications. Approximately 20 mL of 0.25% Marcaine plain was applied to all pin sites in order to achieve some additional local anesthesia. He was taken back to post-anesthesia care unit with vital signs stable and vascular status intact to the right lower extremity and had no complications. He will follow up in clinic in one week for a dressing change. SURGEON: Britany Miner DPM. LOSS CONTROL REPRESENTATIVE: Staff. PREOPERATIVE DIAGNOSIS: Calcaneal fracture right status post external fixation with painful hardware. POSTOPERATIVE DIAGNOSIS: Calcaneal fracture right status post external fixation with painful hardware. OPERATIVE PROCEDURE PERFORMED: Removal of external fixator right foot and ankle, prophylaxis 2 grams Ancef IV preoperatively. ANESTHESIA: General endotracheal anesthesia plus 20 mL of 0.25% Marcaine plain. ESTIMATED BLOOD LOSS: Minimal. COMPLICATIONS: None. TOURNIQUET TIME: Not applicable. CONDITION: Stable to post-anesthesia care unit. COMPLICATIONS: None. DISPOSITION: Nonfocal condition stable to PACU. COMPLICATIONS Non-weightbearing right lower extremity with knee scooter and crutches and will follow up in clinic in one week for dressing change. Britany TONG/AFIA :17 PM :46 PM
== END | disposition home or self-care (01) ==
LOC: ESDC 06:13
PROVIDERS: ATTEND Podiatrist Foot & Ankle Surgery
DX: T84.84XA Pain due to internal orthopedic prosthetic devices, implants and grafts, initial encounter (principal)
CPT/HCPCS: 01480; 20680; J0690; J1885; J2250; J2405; J3010; J7120